=== PATIENT | female | born 1980 | race Two or more races ===

== ENCOUNTER 2020-11-22 18:27 | Emergency (ER) | payer OTHER ==
[~2020-11-22] VITALS: Ht 165.1 cm; Wt 72.6 kg
[2020-11-22 18:44] VITALS: BP 113/76
== END 2020-11-22 22:42 | disposition left against medical advice (07) ==
LOC: ER 18:32
DX: R07.81 Pleurodynia (principal); Z53.21 Procedure and treatment not carried out due to patient leaving prior to being seen by health care provider; W01.0XXA Fall on same level from slipping, tripping and stumbling without subsequent striking against object, initial encounter; Y93.89 Activity, other specified; Y92.89 Other specified places as the place of occurrence of the external cause; Y99.8 Other external cause status
CPT/HCPCS: 71046